=== PATIENT | male | born 1940 | race Caucasian/White ===

== ENCOUNTER 2021-07-28 15:46 | Emergency (ER) | payer MEDICARE, OTHER ==
[~2021-07-28] VITALS: Ht 190.5 cm; Wt 95.5 kg
[2021-07-28] MEDS ORDERED: oxymetazoline 15 ML nasal spray NS ONE (16:30)
[2021-07-28] MEDS ORDERED: tranexamic acid 100mg/ml inj. TP ONE (16:30)
--- NOTE | 2021-07-28 16:51 | NUR ---
topical x2 applied to rt nare.
[2021-07-28 18:18] VITALS: BP 132/92
== END 2021-07-28 18:19 | disposition home or self-care (01) ==
LOC: ER 15:48
DX: R04.0 Epistaxis (principal)
CPT/HCPCS: 99283; J3490

== ENCOUNTER 2021-07-29 07:50 | Emergency (ER) | payer MEDICARE, OTHER ==
[~2021-07-29] VITALS: Ht 190.5 cm; Wt 95.0 kg
[2021-07-29 08:32] VITALS: BP 122/76
== END 2021-07-29 08:35 | disposition home or self-care (01) ==
LOC: ER 07:50
DX: R04.0 Epistaxis (principal)
CPT/HCPCS: 99282; 99284